=== PATIENT | female | born 1960 | race Caucasian/White ===

== ENCOUNTER 2024-05-06 19:39 | Emergency (ER) | payer MEDICARE, OTHER, SELFPAY ==
[2024-05-06 19:41] VITALS: BP 154/86
[2024-05-06 21:00] VITALS: BP 157/95
[2024-05-06 21:17] LABS: % Eosinophils 3.1 % (0-6); % Immature Granulocytes 0.2 % (0-0.5); % Lymphocytes 37.4 % (20.5-51.1); % Monocytes 10.1 % (1.7-9.3); % Neutrophils 48.2 % (42.2-75.2); Absolute Basophils 0.1 10^3/uL (0-0.2); Absolute Eosinophils 0.2 10^3/uL (0-0.7); Absolute Monocytes 0.5 10^3/uL (0.1-0.6); Absolute Neutrophils 2.5 10^3/uL (1.4-6.5); Hematocrit 36.1 % (37.0-47.0); Hemoglobin 12.5 g/dL (12.0-16.0); Mean Corp Hgb Conc. 34.6 g/dL (33.0-37.0); Mean Corpuscular Hgb 31.2 pg (27.0-31.0); Mean Platelet Volume 13.4 fL (7.4-10.4); Nucleated Red Blood Cells % 0 %; Platelet Count 34 10^3/uL (130-400); Red Blood Cell Count 4.01 10^6/uL (4.20-5.40); White Blood Cell Count 5.2 10^3/uL (4.8-10.8)
--- NOTE | 2024-05-06 21:28 | ED.GENMED ---
History of Present Illness
<Chito Dela Cruz, DO - Last Filed: 05/06/24 22:02>
General
Chief Complaint: Vaginal Bleeding
Time Seen by Provider: 05/06/24 20:45
<Mono Swift MD, Resident - Last Filed: 05/07/24 00:08>
General
Source: patient and records
Travel History
Have you traveled to any high risk areas for coronavirus over the past 14 days?: No
Have you had any contact with someone who has COVID-19?: No
Do you have any symptoms of coronavirus? Fever > 100 degrees, chills, cough, shortness of breath, sore throat, loss of taste or smell, muscle aches, or headache?: No
History of Present Illness
History of Present Illness:
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 No preceding episodes of bleeding or
spotting. Denies any other bleeding, pain, fatigue, fever, chills, night sweats, unintentional weight loss or other symptoms. 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
According to the patient, her platelets usually range between 30-50.
Past History
<Mono Swift MD, Resident - Last Filed: 05/07/24 00:08>
Past History
ED Past Medical History: Other (ITP)
ED Past Surgical History: Orthopedic
Social History
Tobacco: Non-smoker
Alcohol: Occasional
Drug: None
Personal:
Living: with family
Review of Systems
<Mono Swift MD, Resident - Last Filed: 05/07/24 00:08>
Review of Systems
Allergies reviewed?: Yes
All Other Systems: ROS reviewed and negative except as documented in HPI and ROS
: Reports bleeding (vaginal)
Phy Exam
<Mono Swift MD, Resident - Last Filed: 05/07/24 00:08>
General Physical Exam
General Presentation: well appearing and no apparent distress
General Skin: warm and dry
General Habitus: normal
General Mental: alert
General Hydration: appears well hydrated
ENT Exam
ENT Exam: EOMI, pharynx normal, neck supple and normocephalic
Eye Exam
Eye Exam: PERRL, cornea clear and conjunctiva normal
Cardiovascular Exam
Cardiovascular Exam: regular rate/rhythm, no edema, no murmur and normal peripheral pulses
Pulmonary Exam
Pulmonary Exam: lungs clear, no respiratory distress, no rales, no crackles, no rhonchi, no stridor, no wheezing and no cough
Gastrointestinal Exam
Gastrointestinal Exam: normal bowel sounds, non tender, soft, no organomegaly, no pulsatile mass and non distended
Neurological Exam
Neurological Exam: alert, oriented x3, no motor deficits and speech normal
Musculoskeletal Exam
Musculoskeletal Exam: full ROM and no edema
Skin Exam
Skin Exam: normal color, warm/dry, no rash and no petechia
Psychiatric Exam
Psychiatric Exam: normal mood/affect
Course
<Chito Dela Cruz, DO - Last Filed: 05/06/24 22:02>
Orders/Labs/Results
Orders:
Orders
05/06/24 21:01
Complete Blood Count/With Diff Urgent
Comprehensive Metabolic Panel Urgent
05/06/24 22:09
Dexamethasone [Decadron] 40 mg PO NOW STA
05/06/24 22:29
US Pelvis W Transvag Combined Urgent
Comment:
Reason For Exam: vaginal bleeding
Abnormal Lab Results
05/06/24
21:01
RBC 4.01 L 10^6/uL
(4.20-5.40)
Hct 36.1 L %
(37.0-47.0)
MCH 31.2 H pg
(27.0-31.0)
Plt Count 34 L 10^3/uL
(130-400)
MPV 13.4 H fL
(7.4-10.4)
Monocytes % 10.1 H %
(1.7-9.3)
Carbon Dioxide 32 H mmol/L
(22-30)
05/06/24 21:01
05/06/24 21:01
Vital Signs
Initial and Last Documented VS:
Initial Vital Signs
Temp Pulse Resp BP Pulse Ox
98.1 F 71 24 154/86 99
05/06/24 19:41 05/06/24 19:41 05/06/24 19:41 05/06/24 19:41 05/06/24 19:41
Last Documented Vital Signs
Temp Pulse Resp BP Pulse Ox
98.1 F 71 24 172/86 100
05/06/24 19:41 05/06/24 19:41 05/06/24 19:41 05/06/24 23:00 05/06/24 23:00
<Mono Swift MD, Resident - Last Filed: 05/07/24 00:08>
Orders/Labs/Results
Orders:
Orders
05/06/24 21:01
Complete Blood Count/With Diff Urgent
Comprehensive Metabolic Panel Urgent
05/06/24 22:09
Dexamethasone [Decadron] 40 mg PO NOW STA
05/06/24 22:29
US Pelvis W Transvag Combined Urgent
Comment:
Reason For Exam: vaginal bleeding
Abnormal Lab Results
05/06/24
21:01
RBC 4.01 L 10^6/uL
(4.20-5.40)
Hct 36.1 L %
(37.0-47.0)
MCH 31.2 H pg
(27.0-31.0)
Plt Count 34 L 10^3/uL
(130-400)
MPV 13.4 H fL
(7.4-10.4)
Monocytes % 10.1 H %
(1.7-9.3)
Carbon Dioxide 32 H mmol/L
(22-30)
05/06/24 21:01
05/06/24 21:01
Vital Signs
Initial and Last Documented VS:
Initial Vital Signs
Temp Pulse Resp BP Pulse Ox
98.1 F 71 24 154/86 99
05/06/24 19:41 05/06/24 19:41 05/06/24 19:41 05/06/24 19:41 05/06/24 19:41
Last Documented Vital Signs
Temp Pulse Resp BP Pulse Ox
98.1 F 71 24 172/86 100
05/06/24 19:41 05/06/24 19:41 05/06/24 19:41 05/06/24 23:00 05/06/24 23:00
<Mono Swift MD, Resident - Last Filed: 05/07/24 00:08>
MDM/Problems Addressed
Differential Diagnosis Includes:
ITP; malignancy; coagulopathy
MDM/Problems Addressed:
Discussed case with Dr. Becker, heme/onc, who recommended pulse dexamethasone therapy, and Dr. Kamara, litigation associate, who recommended pelvic ultrasound.
Patient is bleeding 90% less now. US unremarkable. More likely that this is from ITP. Will discharge with return instructions discussed and printed.
<Mono Swift MD, Resident - Last Filed: 05/07/24 00:08>
*Critical Care Note
Total Time (30-74mins, 75-104mins- exclusive of procedures): Not Applicable
<Chito Dela Cruz, - Last Filed: 05/06/24 22:02>
Update Note
Update Note:
9:45 PM patient went to the bathroom and states that the vaginal bleeding has improved drastically without intervention
ED Attending Note
<Chito Dela Cruz, DO - Last Filed: 05/06/24 22:02>
ED Attending Note
Patient seen and examined by attending physician: Yes
I performed a history and physical exam of patient and discussed management with resident, I reviewed resident's note and agree with documented findings and plan of care.: Yes
ED Attending Note:
I have seen and evaluated the patient with a [id number] encounter. I have spoken to the resident and involved in the medical history, the physical exam, medical decision making.
Evaluation and management service: agree unless noted differently below.
Results interpretation: agree unless noted differently below.
Focused HPI: 64-year-old female presenting with vaginal bleeding for the past several hours. Patient states she went through 2 pads. Given her history of ITP, patient got concerned and came to the emergency department. Patient denies clot
formation
Physical exam: Sitting in bed comfortably. No abdominal tenderness
Medical Decision Making: Given her history of ITP, she seems to be at baseline platelet count. Hemoglobin is normal. Will touch base with hematology in regards to starting prednisone. Will touch base with FOOD PROCESSING CHEMIST in regards to repeating ultrasound or
possibly admitting for hemoglobin trending. Patient had pelvic ultrasound 2021 which showed no abnormality
<Mono Swift MD, Resident - Last Filed: 05/07/24 00:08>
-
Portions of this chart may have been created with voice recognition software.� Occasional wrong word or��sound alike� substitutions may have occurred due to the inherent limitations of voice recognition software.
Discharge Plan
Departure
Condition: Good
Discharge Problem:
Immune thrombocytopenia
Instructions: Immune thrombocytopenia (ITP), Bleeding After Menopause
Prescriptions:
New
dexamethasone 20 mg tablet
40 mg PO DAILY 3 Days Qty: 6 0RF
No Action
fluticasone propionate [Flonase] 16 GM spray,suspension
1 dose intranasal DAILY PRN (Reason: alergies)
loratadine-pseudoephedrine [Loratadine-D] 1 EACH tablet extended release 12 hr
1 ea PO PRN PRN (Reason: seasonl allergies)
omeprazole 20 MG capsule,delayed release(DR/EC)
20 mg PO DAILY PRN (Reason: gerd)
Referrals:
Suresh Lemus DO [Active] - Call in 1-3 days for appt
Regla Nguyen CRNP [Family Provider] -
Interventions
Interventions:
*Risk Screen - Suicide Last Done: 05/06/24 19:42
*General Assessment Last Done: 05/06/24 21:00
*Neglect/Abuse Screening Last Done: 05/06/24 19:42
*ED COVID-19 Vaccine History Last Done: 05/06/24 21:00
ED-Female Genitourinary Assessment Last Done: 05/06/24 21:22
Discharge Date and Time
Print Language: MALTESE
[2024-05-06 21:30] LABS: ALT (SGPT) 25 U/L (0-35); AST (SGOT) 29 U/L (14-36); Albumin 4.3 g/dl (3.5-5.0); Alkaline Phosphatase 39 U/L (38-126); Blood Urea Nitrogen 17 mg/dl (7-17); Calcium 9.4 mg/dl (8.4-10.2); Carbon Dioxide 32 mmol/L (22-30); Chloride 103 mmol/L (98-107); Glucose 83 mg/dl (70-99); Sodium 141 mmol/L (135-145); Total Bilirubin 0.3 mg/dl (0.2-1.3); Total Protein 6.7 g/dl (6.3-8.2); eGFR > 60.00
[2024-05-06 22:00] VITALS: BP 152/98
[2024-05-06 22:11] VITALS: BP 155/84
[2024-05-06] MEDS: DECADRON 40 MG PO (22:26)
[2024-05-06 23:00] VITALS: BP 172/86
[2024-05-07 00:42] VITALS: BP 157/91
== END 2024-05-07 00:43 | disposition home or self-care (01) ==
LOC: EMR 19:39
PROVIDERS: Student in an Organized Health Care Education/Training Program; EMERGENCY PHYSICIAN Student in an Organized Health Care Education/Training Program; FAMILY PHYSICIAN Nurse Practitioner Adult Health
DX: D69.3 Immune thrombocytopenic purpura (principal)
CPT/HCPCS: 99284; 76830; 76856; 80053; 85025

== ENCOUNTER → 2024-05-30 12:18 | Outpatient (REF) | payer MEDICARE, OTHER, SELFPAY ==
[2024-05-30 13:09] LABS: % Basophils 0.2 % (0-2); % Immature Granulocytes 0.5 % (0-0.5); % Lymphocytes 9.1 % (20.5-51.1); % Monocytes 1.6 % (1.7-9.3); % Neutrophils 88.6 % (42.2-75.2); Absolute Lymphocytes 0.8 10^3/uL (1.2-3.4); Absolute Monocytes 0.1 10^3/uL (0.1-0.6); Absolute Neutrophils 7.4 10^3/uL (1.4-6.5); Hematocrit 37.8 % (37.0-47.0); Hemoglobin 13.1 g/dL (12.0-16.0); Mean Corp Hgb Conc. 34.7 g/dL (33.0-37.0); Mean Corpuscular Volume 92.4 fL (81.0-99.0); Mean Platelet Volume 11.5 fL (7.4-10.4); Nucleated Red Blood Cells % 0 %; Platelet Count 128 10^3/uL (130-400); Red Blood Cell Count 4.09 10^6/uL (4.20-5.40); Red Cell Dist. Width 12.5 % (11.5-14.5); White Blood Cell Count 8.3 10^3/uL (4.8-10.8)
== END ==
LOC: REG 12:18
PROVIDERS: ATTENDING PHYSICIAN Internal Medicine Hematology & Oncology; FAMILY PHYSICIAN Nurse Practitioner Adult Health
DX: D69.3 Immune thrombocytopenic purpura (principal)
CPT/HCPCS: 36415; 85025

== ENCOUNTER → 2024-06-14 14:24 | Outpatient (REF) | payer MEDICARE, OTHER, SELFPAY | LOC: WDC 14:24 | PROVIDERS: ATTENDING PHYSICIAN Obstetrics & Gynecology Gynecology; FAMILY PHYSICIAN Internal Medicine | DX: M85.80 Other specified disorders of bone density and structure, unspecified site (principal); Z12.31 Encounter for screening mammogram for malignant neoplasm of breast; Z13.820 Encounter for screening for osteoporosis; Z78.0 Asymptomatic menopausal state | CPT/HCPCS: 77063; 77067; 77080 ==

== ENCOUNTER 2025-06-27 06:33 | Day surgery (SDC) | payer MEDICARE, OTHER, SELFPAY | END 2025-06-27 12:11 | disposition home or self-care (01) | LOC: GI 06:33 | PROVIDERS: ATTENDING PHYSICIAN Internal Medicine; FAMILY PHYSICIAN Nurse Practitioner Adult Health | DX: Z12.11 Encounter for screening for malignant neoplasm of colon (principal); K57.30 Diverticulosis of large intestine without perforation or abscess without bleeding; K64.8 Other hemorrhoids | CPT/HCPCS: G0121 ==